=== PATIENT | female | born 1940 ===

== ENCOUNTER 2020-10-10 20:32 | Emergency (ER) | payer OTHER ==
[~2020-10-10] VITALS: Ht 147.3 cm; Wt 51.7 kg
[~2020-10-10 20:32] MED LIST: EVISTA60 MG; LIPITOR40 MG; OXCARBAZEPINE300 MG; ZOLOFT25 MG
[2020-10-10] MEDS ORDERED: ATORVASTATIN CA40 MG PO (21:23)
[2020-10-10] MEDS ORDERED: TRIAMTERENE-HC1 EAC3 PO (21:23)
[2020-10-10] MEDS ORDERED: RALOXIFENE HCL60 MG PO (21:24)
[2020-10-10] MEDS ORDERED: ACETAMINOPHEN650 M2 PO (23:15)
== END 2020-10-10 23:11 | disposition home or self-care (01) ==
LOC: ER 20:32
DX: S00.03XA Contusion of scalp, initial encounter (principal); W18.09XA Striking against other object with subsequent fall, initial encounter; Y93.89 Activity, other specified; Y92.018 Other place in single-family (private) house as the place of occurrence of the external cause; Y99.8 Other external cause status